=== PATIENT | female | born 1950 | race Caucasian/White ===

== ENCOUNTER → 2022-04-24 10:04 | Outpatient (CLI) | payer MEDICARE, BC, SELFPAY ==
--- NOTE | ~2022-04-24 | XR_ITS ---
XR hip BI wo pelvis DATE: 04/24/2022 10:24 INDICATION: Bilateral hip pain TECHNIQUE: Multiple views of pelvis and each hip COMPARISON: None FINDINGS: Abdominal aortic and biiliac endovascular graft. Status post bilateral lumbosacral posterio r surgical spine fusion. Surgical clips overlie the right pelvic area. Battery pack overlies the right abdomen. Osteopenia. Prominent degenerative disc disease of the lumbar spine. Normal alignment at the pubic symphysis and sacroiliac joints. No pelvic fracture or bone destruction is evident. Mild bilateral hip osteoarthritis. No fracture or dislocation, avascular necrosis or bone destruction of either hip is detected. IMPRESSION: Mild bilateral hip osteoarthritis Posterior fusion at L3 S1 bilaterally Abdominal biiliac endovascular graft Surgical clips, right pelvic area Reviewed, dictated and finalized at location A.
== END ==
PROVIDERS: Visit Provider Nurse Practitioner Family
DX: M25.552 Pain in left hip (principal); M25.551 Pain in right hip; M16.0 Bilateral primary osteoarthritis of hip; M43.27 Fusion of spine, lumbosacral region; Z95.828 Presence of other vascular implants and grafts
CPT/HCPCS: 73521